=== PATIENT | female | born 1935 | race African-American/Black ===

== ENCOUNTER 2020-03-01 13:03 | Emergency (ER) | payer OTHER ==
[~2020-03-01] VITALS: Ht 162.6 cm; Wt 60.8 kg
[2020-03-01] MEDS ORDERED: MOBIC7.5 MG PO (15:00)
[2020-03-01] MEDS ORDERED: NORCO 5-325 TA1 EAC1 PO (15:00)
[2020-03-01 15:16] VITALS: BP 136/57
== END 2020-03-01 15:16 | disposition home or self-care (01) ==
LOC: ER 13:03
DX: S20.211A Contusion of right front wall of thorax, initial encounter (principal); E11.40 Type 2 diabetes mellitus with diabetic neuropathy, unspecified; M25.551 Pain in right hip; R10.2 Pelvic and perineal pain; Z88.2 Allergy status to sulfonamides; W18.39XA Other fall on same level, initial encounter; Y93.89 Activity, other specified; Y92.59 Other trade areas as the place of occurrence of the external cause; Y99.8 Other external cause status

== ENCOUNTER 2021-02-01 12:40 | Emergency (ER) | payer OTHER ==
[~2021-02-01] VITALS: Ht 162.6 cm; Wt 61.2 kg
[~2021-02-01 12:40] MED LIST: MOBIC7.5 MG PO; NORCO 5-325 TA1 EAC1 PO
[2021-02-01 13:37] LABS: ABSOLUTE NEUTROPHILS 5.8 thou/uL (1.4-8.2); BASOPHILS 0.7 % (0.0-2.0); EOSINOPHILS 0.8 % (0.0-3.0); HEMATOCRIT 42.9 % (37.0-47.0); HEMOGLOBIN 14.2 gm/dL (12.0-15.0); MCH 29.9 pg (26.0-34.0); MCHC 33.1 g/dL (28.0-37.0); MCV 90.2 fL (80.0-100.0); MONOCYTES 7.9 % (1.0-8.0); PLATELET COUNT 266 thou/uL (150-400); POLYS 70.6 % (36.0-66.0); RBC 4.76 mil/uL (4.20-5.00); RDW 14.1 % (10.5-14.5); WBC 8.2 thou/uL (4.0-11.0)
[2021-02-01 13:45] LABS: CALCIUM 9.4 mg/dL (8.5-10.1); CREATININE 0.8 mg/dL (0.6-1.0); POTASSIUM 4.3 mmol/L (3.5-5.1)
[2021-02-01 13:51] LABS: DIRECT BILIRUBIN 0.1 mg/dL (<0.1-0.2); TOTAL BILIRUBIN 0.5 mg/dL (0.2-1.0); TOTAL PROTEIN 8.3 g/dL (6.4-8.2)
[2021-02-01 13:56] LABS: URINE BILIRUBIN NEGATIVE (Negative); URINE BLOOD NEGATIVE (Negative); URINE CLARITY CLEAR; URINE COLOR YELLOW; URINE GLUCOSE-RANDOM* NEGATIVE (Negative); URINE KETONES NEGATIVE (Negative); URINE LEUKOCYTES-REFLEX 2+ (Negative); URINE NITRITE-REFLEX NEGATIVE (Negative); URINE PROTEIN (DIPSTICK) NEGATIVE (Negative); URINE SPECIFIC GRAVITY 1.015 (1.005-1.035); URINE UROBILINOGEN 0.2 E.U./dl (0.2-1.0)
[2021-02-01 14:07] LABS: BACTERIA-REFLEX None Seen /HPF (None Seen); CASTS None Seen /LPF (None Seen); CRYSTALS None Seen /LPF (None Seen); SQUAMOUS 0-3 Few /LPF (0-3); URINE RBC 1-2 Rare /HPF (NONE SEEN); URINE WBC-REFLEX 6-15 Few /HPF (0-5)
[2021-02-01] MEDS ORDERED: CEPHALEXIN500 MG PO (15:14)
[2021-02-01] MEDS ORDERED: ONDANSETRON HCL4 M2 PO (15:14)
[2021-02-01 15:28] VITALS: BP 107/59
--- NOTE | 2021-02-02 12:07 | EKG ---
[address] [address] ELECTROCARDIOGRAM REPORT Name: GATO SANTIAGO Room #: [facility]#: [id number] Admission: 02/01/21 Attend Phys: Discharge: 02/01/21 Date of : 35 Report #: [id number] [facility] ED Test Date: 2021-02-01 Test Time: 13:36:02 Pat Name: GATO SANTIAGO Department: Room: Gender: F Lease Administrator: : 1935 Requested By: Jun Ortega Order Number: [id number] MD: Emeterio Montelongo Measurements Intervals Sneads Rate: 75 P: 70 HI: 153 QRS: -70 QRSD: 131 T: 33 QT: 405 QTc: 453 Interpretive Statements Sinus rhythm RBBB and LAFB No previous ECG available for comparison Electronically Signed On 02-02-2021 12:07:21 CDT by Emeterio Montelongo [email or web address] <ELECTRONICALLY SIGNED> By: Emeterio Montelongo MD 02/02/21 1207 [id number] [id number] MD JAYDEN Lau
== END 2021-02-01 15:28 | disposition home or self-care (01) ==
LOC: ER 12:40
PROVIDERS: Nurse Practitioner
DX: N39.0 Urinary tract infection, site not specified (principal); Z20.822 Contact with and (suspected) exposure to COVID-19; R11.0 Nausea; E11.40 Type 2 diabetes mellitus with diabetic neuropathy, unspecified; Z88.2 Allergy status to sulfonamides; Z79.899 Other long term (current) drug therapy